=== PATIENT | female | born 2000 | race Hispanic/Latino ===

== ENCOUNTER 2024-03-06 16:52 | Emergency (ER) | payer BC ==
[~2024-03-06] VITALS: Ht 162.6 cm; Wt 59.0 kg
--- NOTE | 2024-03-06 16:57 | ERN ---
ED Note History of Present Illness Stated Complaint: ABCESS Chief Complaint: Abscess Time Seen by MD: 16:54 Dictation: PATIENT IS HERE WITH COMPLAINTS OF A RIGHT GLUTEAL ABSCESS SHE HAS HAD FOR ONE WEEK. NO FEVER NO CHILLS NO NAUSEA VOMITING. NO PRIMARY CARE DOCTOR. Allergies: Coded Allergies: No Known Allergies (Unverified Allergy, Unknown, 03/06/24) Home Meds Active Scripts Clindamycin HCl (Clindamycin HCl) 300 Mg Capsule, 1 CAP PO QID for 10 Days, #40 CAP 0 Refills Prov:SARAH SANTANA GRAIN DRIER OPERATOR 03/06/24 Ibuprofen (Ibuprofen 800 mg Tab) 800 Mg Tab, 800 MG PO Q8H PRN for fever or pain, #30 TAB 0 Refills Prov:SARAH SANTANA GRAIN DRIER OPERATOR 03/06/24 Past Medical History History: Not Applicable RN Note Reviewed/Agreed w/PFSH: Yes Review of System Dictation CONSTITUTIONAL: NEGATIVE EXCEPT FOR HPI HEAD/FACE: NEGATIVE EXCEPT FOR HPI EENT: NEGATIVE EXCEPT FOR HPI RESPIRATORY: NEGATIVE EXCEPT FOR HPI GASTROINTESTINAL/ABDOMINAL: NEGATIVE EXCEPT FOR HPI GENITOURINARY: NEGATIVE EXCEPT FOR HPI MUSCULOSKELETAL: NEGATIVE EXCEPT FOR HPI INTEGUMENTARY: NEGATIVE EXCEPT FOR HPI RIGHT GLUTEAL ABSCESS NEUROLOGICAL/PSYCH: NEGATIVE EXCEPT FOR HPI HEMATOLOGIC/LYMPHATIC: NEGATIVE EXCEPT FOR HPI ALL SYSTEMS NEGATIVE, EXCEPT NOTED ABOVE. 13 POINT REVIEW OF SYSTEMS ASSESSED AND ALL NEGATIVE EXCEPT FOR ABOVE. Initial Vital Sign VS Vital Signs Date Time Temp Pulse Resp B/P (MAP) Pulse Ox O2 Delivery O2 Flow Rate FiO2 03/06/24 16:55 100.9 118 20 106/68 99 Room Air 0 03/06/24 19:49 21 Physical Exam Dictation VITAL SIGNS REVIEWED GENERAL APPEARANCE: ALERT, ORIENTED X 3, NO ACUTE DISTRESS, WELL DEVELOPED, NOURISHED. HEAD AND FACE: NON-TRAUMATIC. EYES: PERRL, PINK CONJUNCTIVAS, EYELID NO TRAUMA, ANTERIOR CHAMBER WITH ARCUS SENILIS. EARS: PINNAS INTACT AND NO SIGNS OF TRAUMA OR ERYTHEMA EAR CANALS CLEAR AND NO DISCHARGE TM NO ERYTHEMA NOSE: NO DISCHARGE, NO BLEEDING. OROPHARYNX: MOUTH NORMAL, TONGUE PINK, PHARYNX CLEAR,NO ERYTHEMA, TONSILS NO EXUDATES, NO ABSCESSES NOTED, MUCOUS MEMBRANE MOIST NECK: SUPPLE, NON-TENDER, NO THYROMEGALY, NO MASSES, NO JVD, NO BRUITS BREAST:DEFERRED CHEST:NO TENDERNESS, NO CREPITUS, NO PARADOXICAL MOVEMENT, NO RETRACTIONS LUNGS:CLEAR, WELL-VENTILATED, SYMMETRIC, NO RALES, NO WHEEZING, NO RHONCHI, NO STRIDOR, GOOD BREATH SOUNDS BILATERALLY HEART: REGULAR RATE, REGULAR RHYTHM, NO MURMUR, NO GALLOPS VASCULAR: NO PERIPHERAL EDEMA, ABDOMEN: SOFT, POSITIVE BOWEL SOUNDS, NONDISTENDED, NO GUARDING, NONTENDER, NO REBOUND, NO MASSES NO HEPATOMEGALY, NO SPLENOMEGALY, NO GOMEZ'S SIGN, NO HERNIAS. RECTAL: DEFERRED GENITAL: DEFERRED NEUROLOGICAL: NORMAL SPEECH, MOTOR FUNCTION INTACT, SENSORY FUNCTION INTACT MUSCULOSKELETAL: NECK NONTENDER, FULL RANGE OF MOTION, BACK NONTENDER, FULL RANGE OF MOTION, EXTREMITIES: NONTENDER, FULL RANGE OF MOTION SKIN: COLOR PINK, DRY, RIGHT GLUTEAL ABSCESS WITH SURROUNDING ERYTHEMA. PATIENT'S VANESSA IN ROOM WITH THE EXAM LYMPHATIC: DEFERRED Results (Laboratory/Radiology) Laboratory/Radiology Labs Reviewed?: Yes ED Course ED Course 1921 PATIENT DISCHARGED HOME AFTER I AND D OF RIGHT GLUTEAL ABSCESS. STARTED ON CLINDAMYCIN. DISCHARGED HOME TO FOLLOW UP WITH HER DOCTOR IN THE NEXT 2-3 DAYS OR REFER HER TO DR. MC RIVAS FOR FOLLOW UP Medical Decision Making MDM MEDICAL DECISION-MAKING BASED ON BASIC LABS AND I AND D OF GLUTEAL ABSCESS. I AND D PERFORMED, PATIENT LOADED WITH CLINDAMYCIN 600 MG P.O. CULTURES WERE SENT PATIENT WILL BE REFERRED TO DR. HARDING FOR SURGERY CONSULTATION IS Procedure Procedure Dictation: 1909 PROCEDURE EXPLAINED TO PATIENT SHE AGREED TO PROCEED HER VANESSA WAS IN THE ROOM WITH THE TREATMENT RIGHT GLUTEAL ABSCESS WAS CLEANED WITH BETADINE ASEPTICALLY USED4 ML 1% LIDOCAINE PLAIN FOR LOCAL ANESTHETIC 1.5 CM INCISION MADE WITH 11. BLADE LOCULATIONS WERE EXPLORED [id number] ML PURULENT DRAINAGE OBTAINED, CULTURE SENT PATIENT TOLERATED WELL DX & DISP Disposition: Discharge Departure Impression: Primary Impression: Abscess, gluteal, right Condition: Stable Scripts Clindamycin HCl (Clindamycin HCl) 300 Mg Capsule 1 CAP PO QID for 10 Days, #40 CAP 0 Refills Prov: SARAH SANTANA GRAIN DRIER OPERATOR 03/06/24 Ibuprofen (Ibuprofen 800 mg Tab) 800 Mg Tab 800 MG PO Q8H PRN for fever or pain, #30 TAB 0 Refills Prov: SARAH SANTANA GRAIN DRIER OPERATOR 03/06/24 Additional Instructions: FOLLOW-UP WITH PRIMARY CARE PROVIDER IN 1 TO 2 DAYS. TAKE MEDICATIONS DIRECTED HERE IN THE EMERGENCY ROOM. OKAY TO CONTINUE HOME MEDICATIONS UNLESS OTHERWISE DISCUSSED DURING YOUR VISIT IN THE EMERGENCY ROOM TODAY. RETURN TO YOUR NEAREST EMERGENCY ROOM IF SYMPTOMS WORSEN OR IF THERE IS NO IMPROVEMENT. CALL 911 IF YOU NEED IMMEDIATE ASSISTANCE. TAKE TYLENOL OR MOTRIN [id number] NEEDED AND IF NO CONTRAINDICATIONS ARE PRESENT. INCREASE ORAL HYDRATION. A WOUND CULTURE OR URINE CULTURE WAS ORDERED HERE IN THE EMERGENCY ROOM DEPARTMENT PLEASE FOLLOW-UP WITH PRIMARY CARE PROVIDER AND ADVISE THEM TO GET REPEAT PORTS FROM OUR FACILITY. IF YOU HAD ANY HONORIO WRAP/SPLINTS THAT WERE APPLIED HERE, PLEASE DO NOT REMOVE THEM UNTIL YOU SEE YOUR PRIMARY CARE OR SPECIALTY. TAKE ANTIBIOTICS DIRECTED UNTIL GONE. , CHANGE DRESSING DAILY. FOLLOW UP WITH SURGEON NEEDED IN THE NEXT 2-3 DAYS. OKAY TO TAKE A SHOWER WASH WITH SOAP AND WATER AND PLACE DRESSING ONCE FINISH Referrals: SELF,REFERRAL (PCP) MC HARDING MD Time of Disposition: 19:26 I have reviewed the case, and I agree with, Diagnosis and Plan I performed the substantive portion of the visit. I have reviewed and personally made and approve the management plan that is documented in the notes by myself or the NARDA. I acknowledge full responsibility for the patient's management plan. SARAH SANTANA NP Mar 06, 2024 16:57 JEMIMA MOLINA MD Mar 13, 2024 15:32
[2024-03-06] MEDS: acetaMINOPHEN 500 MG TABLET PO ONE (17:17)
[2024-03-06 17:36] LABS: BASOPHILS # (AUTO) 0.03 K/uL (0.00-0.20); BASOPHILS % (AUTO) 0.2 % (0.0-5.0); EOSINOPHILS % (AUTO) 2.1 % (0.0-8.0); HEMATOCRIT 34.1 % (36-48); IMMATURE GRANULOCYTE ABSOLUTE 0.07 K/uL (0-1); LYMPHOCYTES # (AUTO) 1.3 K/uL (1.0-4.8); LYMPHOCYTES % (AUTO) 9.3 % (21.0-51.0); MEAN CORPUSCULAR HGB CONC 33.7 g/dL (32.0-36.0); MEAN CORPUSCULAR VOLUME 83.2 fL (79-99); MONOCYTES % (AUTO) 7.3 % (3.0-13.0); NEUTROPHILS # (AUTO) 11.4 K/uL (1.8-7.7); NEUTROPHILS % (AUTO) 80.6 % (40.0-77.0); PLATELET COUNT (AUTO) 308 K/uL (130-400); RED CELL DISTRIBUTION WIDTH 13.6 % (11.0-15.5); WHITE BLOOD COUNT (AUTO) 14.1 K/uL (4.8-10.8)
[2024-03-06 17:41] LABS: CREATININE 0.7 mg/dL (0.5-1.0); POTASSIUM 3.4 mmol/L (3.5-5.1)
[2024-03-06] MEDS ORDERED: CLIN-141 PO (19:26)
[2024-03-06] MEDS ORDERED: IBUP-2077 PO (19:26)
[2024-03-06] MEDS: LIDOCAINE HCL 1% 20 ML VIAL INJ SCH (19:46)
[2024-03-06] MEDS: CLINDAMYCIN 150 MG CAP PO ONE (19:46)
[2024-03-06 19:49] VITALS: BP 115/74; PULSE 74; RESP 18; TEMP 98.8; O2SAT 98
== END 2024-03-06 19:50 | disposition home or self-care (01) ==
LOC: EDH 16:52
DX: L02.31 Cutaneous abscess of buttock (principal); Z79.899 Other long term (current) drug therapy
CPT/HCPCS: 10060; 36415; 80048; 85025; 87070; 87086; 87186; 99283